=== PATIENT | male | born 1960 | race Caucasian/White ===

== ENCOUNTER → 2016-07-24 | Outpatient (CLI) | payer BC, OTHER ==
[~2016-07-24] MED LIST: METAMUCIL1 EAC1; PROVENTIL HFA6.7 G1 INH
--- NOTE | ~2016-07-24 | SLE ---
[facility] [place] [address] POLYSOMNOGRAPHY STUDY Name: THOMAS STARK Room #: REG [facility]#: [id number] Admission: 07/24/16 Attend Phys: Juni Arroyo MD Discharge: Date of : 60 Report #: [id number] THIS REPORT FOR: //name// CC: Juni Blanton DO HISTORY: The patient with daytime somnolence, difficulty sleeping, abnormal nocturnal desaturation study. Positive history of snoring. COMMENTS: Baseline portion: Total sleep time 184 minutes, sleep efficiency 93%. RESPIRATORY SUMMARY: Central apnea 12, mixed apnea 9, obstructive apnea 12, hypopnea 48. Apnea-hypopnea index of 26 events per sleep hour. No REM sleep seen. Supine AHI 49, right lateral 1 event per sleep hour. Max heart rate 79. Low oxygen saturation 84%, spending 0.6% of recording time less than 90%. Periodic limb movement with arousal index of 2.9 events per sleep hour. CPAP TITRATION: Titrated at 5, 7 and 9 cm water pressure. At 9 cm water pressure, the patient was seen for 110 minutes of which 8 minutes was in REM sleep. There were 2 hypopneas, apnea-hypopnea index of 0 event per sleep hour, low sat of 82%. The patient was seen in supine REM sleep. The desaturation episode at last setting was transient. IMPRESSION: 1. Obstructive sleep apnea/hypopnea, G47.33 with positional component. 2. Periodic limb movement with arousal index of 2.9 events per sleep hour. 3. CPAP improves the patient's apnea-hypopnea index, snoring and desaturation. SUGGESTIONS: 1. In addition to specific therapy, the patient will be cautioned on driving or operating dangerous machinery unless fully alert. The patient will be cautioned on the use of respiratory depressants. 2. TSH and weight loss is recommended. 3. The usual sleep apnea suggestions are recommended. 4. Sleep position retraining is recommended. 5. Oral appliance or appropriate surgery may be considered with appropriate followup. 6. An auto-titrating CPAP between 6 and 12 cm water pressure is initially recommended. During our study, a Respironics Lindsay View large mask was used [facility] [address] [place] [address] POLYSOMNOGRAPHY STUDY Name: MITHOMAS MELENDEZ Room #: REG [facility] Latrice.#: [id number] Admission: 07/24/16 Attend Phys: Juni Arroyo MD Discharge: Date of : 60 Report #: [id number] with heated humidity. 7. If signs and symptoms are not improved with therapy, further evaluation recommended. Please do not hesitate to contact me if I may be of further assistance. By: [id number] Juni Arroyo MD /nt
== END ==
LOC: SLEEPLAB 12:40
DX: G47.33 Obstructive sleep apnea (adult) (pediatric) (principal)